=== PATIENT | female | born 1970 | race African-American/Black ===

== ENCOUNTER 2016-05-19 17:51 | Emergency (ER) | payer MEDICAID ==
[2016-05-19 18:07] VITALS: TEMP 98.6; BMI 28.2
[2016-05-19 18:38] LABS: MPV 9.2 fL (7.4-10.4)
[2016-05-19 18:46] LABS: BLOOD UREA NITROGEN 16 MG/DL (7-17); CALCIUM 8.9 MG/DL (8.4-10.2); CALCULATED OSMOLALITY 268 MOs/Kg (270-290); CHLORIDE 99 mEq/L (98-107); GLUCOSE 192 MG/DL (70-99); SODIUM LEVEL 136 mEq/L (137-146); TOTAL PROTEIN 7.1 G/DL (6.3-8.2)
[2016-05-19 18:53] LABS: PARTIAL THROMB. TIME 22.3 SEC (22-35)
--- NOTE | 2016-05-19 20:17 | DIRPT ---
CLINICAL DATA: Chest pain. Diagnosed with bronchitis on Tuesday. Midsternal chest pain starting today. EXAM: CHEST 2 VIEW COMPARISON: 08/01/2015 FINDINGS: The heart size and mediastinal contours are within normal limits. Both lungs are clear. The visualized skeletal structures are unremarkable. Surgical clips in the right upper quadrant. IMPRESSION: No active cardiopulmonary disease. Electronically Signed By: Fernando Pendleton M.D. On: 05/19/2016 20:15
[2016-05-19 20:23] LABS: SEG NEUTROPHIL 81 % (45-76); TOTAL CELL COUNT 100
--- NOTE | 2016-05-19 20:44 | EDPRACDOC ---
- General Information Chief Complaint: Chest Pain Stated Complaint: CP SHARP PRESSURE Time Seen by Provider: 05/19/16 19:54 Information Source: Patient Mode of Arrival: Car Home Medications: Home Medications Levetiracetam [Keppra] 1,000 mg PO BID 03/12/12 Propranolol HCl [Innopran Xl] 120 mg PO DAILY 03/04/15 Calcium Carbonate/Vitamin D3 [Calcium 600 + Vit D 400 Caplet] 1 each PO DAILY Cholecalciferol (Vitamin D3) [Vitamin D3] 5,000 unit PO DAILY 05/30/15 Lamotrigine [Lamictal] 100 mg PO DAILY 05/30/15 Lorazepam [Ativan] 1 mg PO BID PRN 05/30/15 Lubiprostone [Amitiza] 24 mcg PO BID PRN 05/30/15 Multivitamin [One Daily Multivitamin] 1 each PO DAILY 05/30/15 Ondansetron [Zofran Odt] 4 mg PO Q6H PRN #15 tab.rapdis 05/30/15 Oxymorphone HCl [Opana] 5 mg PO TID PRN 05/30/15 Paroxetine HCl [Paxil Cr] 37.5 mg PO DAILY 05/30/15 Promethazine HCl [Phenergan] 12.5 mg PO Q6H PRN 05/30/15 Trazodone HCl 150 mg PO HS 05/30/15 Cyclobenzaprine HCl [Flexeril] 10 mg PO TID #21 tab 05/19/16 Meloxicam [Mobic] 7.5 mg PO BID #20 tab 05/19/16 Allergies/Adverse Reactions: Allergies Allergy/AdvReac Type Severity Reaction Status Date / Time codeine Allergy See Verified 05/30/15 12:10 Comments etodolac [From Lodine] Allergy Itching Verified 05/30/15 12:10 tramadol Allergy See Verified 05/30/15 12:10 Comments - History of Present Illness Onset: last night HPI: PT PRESENTS TODAY WITH SHARP, LEFT SIDED CHEST WALL PAIN THAT BEGAN EARLIER TODAY. PT STATES THAT SHE WAS RECENTLY TREATED FOR BRONCHITIS AND HAS HAD CHEST WALL PRESSURE, BUT THIS PRESSURE IS DIFFERENT AND FEELS SIMILAR TO HER PE' S IN 2014. DENIES FEVER, SHOB, ABD PAIN, N/V/D. DOES NOT APPEAR TO BE IN DISTRESS AT THIS TIME. PT IS NOT ANTI-COAGULATED. Chest Pain Location: Reports: Left Chest Pain Radiation: Reports: None Symptoms Occur: Reports: Suddenly Cardiac History of: Reports: DVT/PE Medications within 24 Hours: Reports: Other Prehospital Care: Reports: None Pain Came On: Reports: Suddenly Pain Status: Present Now Pain Description: Reports: Sharp Pain Severity: Moderate Pain Worsens With: Reports: Breathing Pain Improves With: Reports: Rest Associated Signs and Symptoms: Reports: None ED Past Medical History - History Reviewed Yes Nurses notes reviewed and agree except as marked - Patient Medical History Neurological History: Reports: Seizures (Epileptic), Epilepsy Respiratory History: Reports: Pneumonia (APR 2013), Pulmonary Embolism (04/2013) Musculoskeletal History: Reports: Arthritis Psychological History: Reports: Depression, Anxiety. Denies: Substance Use Disorder Systemic History: Reports: Anemia. Denies: Cancer Surgical History: Reports: Cholecystectomy, Tonsillectomy/Adnoidectomy. Denies : Hysterectomy - Family Medical History Reports: Hypertension (GRANDMOTHER), Cancer (FATHER (lung) AND M. GRANDMOTHER ( colon)), Blood Disorders (father: anemia) - Social Medical History Smoking Status: Never smoker Social History: Denies: Substance Use Disorder EDM Review of Systems - Review of Systems ROS Negative Except as Marked: Yes All systems reviewed and were negative except as marked Constitutional: No Symptoms Reported Ears: No Symptoms Reported Throat: No Symptoms Reported Nose: No Symptoms Reported Respiratory: Cough Cardiovascular: Chest Pain Gastrointestinal: No Symptoms Reported Neurological: No Symptoms Reported Musculoskeletal: No Symptoms Reported Integumentary: No Symptoms Reported - Physical Exam Constitutional: Alert (Awake), No apparent distress Oriented to: Time, Person, Place Last recorded Vital Signs: Last Vital Signs Temp 98.6 F 05/19/16 18:04 Pulse 82 05/19/16 19:59 Resp 18 05/19/16 19:59 BP 126/83 05/19/16 19:59 Pulse Ox 96 05/19/16 19:59 Oxygen Pulse Oxygen Saturation 96 O2 Device Room Air Oxygen Flow Rate Fraction of Inspired Oxygen ( FIO2) - HEENT Head: Normal Eye Exam: Normal Neck: Normal, Denies Pain, Midline - Respiratory/Cardiovascular Respiratory: Normal - CTA Cardiovascular: Normal - GI Palpation: Normal Tenderness: Non tender - Musculoskeletal Back: Normal Extremities: Normal - Integumentary Skin: Normal Lymphatics: Normal - Neurologic Cerebellar: Normal Mood Description: Normal Thought: Coherent Perception: Normal ED Chest Pain Exam - Respiratory/Cardiovascular Respiratory: Normal - CTA Cardiovascular/Chest: Normal Radial Pulse: Normal Chest Palpation: Normal - Action ASA given in the ED: No - Results 05/19/16 18:11 05/19/16 18:11 WBC 15.4 xk/uL (3.8-10.8) H 05/19/16 18:11 RBC 6.02 xM/uL (4.20-5.40) H 05/19/16 18:11 Hgb 12.9 g/dL (12.0-16.0) 05/19/16 18:11 Hct 40.1 % (36-47) 05/19/16 18:11 MCV 67 fL (81-99) L 05/19/16 18:11 MCH 21.5 pg (27-32) L 05/19/16 18:11 MCHC 32.3 g/dl (33-36) L 05/19/16 18:11 RDW 18.4 % (11.5-14.5) H 05/19/16 18:11 Plt Count 256 xk/uL (130-400) 05/19/16 18:11 MPV 9.2 fL (7.4-10.4) 05/19/16 18:11 Neut % (Auto) Cancelled 05/19/16 18:11 Lymph % (Auto) Cancelled 05/19/16 18:11 [place] % (Auto) Cancelled 05/19/16 18:11 Eos % (Auto) Cancelled 05/19/16 18:11 Baso % (Auto) Cancelled 05/19/16 18:11 Absolute Neuts (auto) Cancelled 05/19/16 18:11 Absolute Lymphs (auto) Cancelled 05/19/16 18:11 Seg Neuts % (Manual) 81 % (45-76) H 05/19/16 18:11 Band Neutrophils % 1 % (0-5) 05/19/16 18:11 Lymphocytes % (Manual) 13 % (17-44) L 05/19/16 18:11 Monocytes % (Manual) 5 % (0-10) 05/19/16 18:11 Absolute Neutrophils 12.63 xk/uL (1.7-8.2) H 05/19/16 18:11 Absolute Lymphocytes 2.00 xk/uL (0.65-4.75) 05/19/16 18:11 Platelet Estimate Norm (NORMAL) 05/19/16 18:11 RBC Morphology 1+ hypo 1+ ellipto 1+ target 1+ polychrom 1+ micro 05/19/16 18:11 RBC Morphology 1+ hypo 1+ ellipto 1+ target 1+ polychrom 1+ micro 05/19/16 18:11 RBC Morphology 1+ hypo 1+ ellipto 1+ target 1+ polychrom 1+ micro 05/19/16 18:11 RBC Morphology 1+ hypo 1+ ellipto 1+ target 1+ polychrom 1+ micro 05/19/16 18:11 RBC Morphology 1+ hypo 1+ ellipto 1+ target 1+ polychrom 1+ micro 05/19/16 18:11 PT 10.7 SEC (9.2-11.2) 05/19/16 18:11 INR 1.0 05/19/16 18:11 APTT 22.3 SEC (22-35) 05/19/16 18:11 Sodium 136 mEq/L (137-146) L 05/19/16 18:11 Potassium 4.1 mEq/L (3.5-5.1) 05/19/16 18:11 Chloride 99 mEq/L (98-107) 05/19/16 18:11 Carbon Dioxide 25 mMOL/L (22-33) 05/19/16 18:11 Anion Gap 16 mEq/L (8-16) 05/19/16 18:11 BUN 16 MG/DL (7-17) 05/19/16 18:11 Creatinine 0.90 MG/DL (0.52-1.04) 05/19/16 18:11 Estimated GFR (MDRD) > 60 mL/min (>=60) 05/19/16 18:11 Glucose 192 MG/DL (70-99) H 05/19/16 18:11 Calculated Osmolality 268 MOs/Kg (270-290) L 05/19/16 18:11 Calcium 8.9 MG/DL (8.4-10.2) 05/19/16 18:11 Total Bilirubin 0.8 MG/DL (0.2-1.3) 05/19/16 18:11 AST 109 IU/L (14-36) H 05/19/16 18:11 ALT 112 IU/L (9-52) H 05/19/16 18:11 Alkaline Phosphatase 70 IU/L (38-126) 05/19/16 18:11 Troponin I < 0.01 ng/mL (<.04) 05/19/16 18:11 Gwg-Z-Hrsmounvbza Pept 90 pg/mL (0-450) 05/19/16 18:11 Total Protein 7.1 G/DL (6.3-8.2) 05/19/16 18:11 Albumin 4.2 G/DL (3.5-5.0) 05/19/16 18:11 Lab Results 05/19/16 05/19/16 05/19/16 18:11 18:11 18:11 WBC 15.4 H RBC 6.02 H Hgb 12.9 Hct 40.1 MCV 67 L MCH 21.5 L MCHC 32.3 L RDW 18.4 H Plt Count 256 MPV 9.2 Neut % (Auto) Cancelled Lymph % (Auto) Cancelled [place] % (Auto) Cancelled Eos % (Auto) Cancelled Baso % (Auto) Cancelled Absolute Neuts (auto) Cancelled Absolute Lymphs (auto) Cancelled Seg Neuts % (Manual) 81 H Band Neutrophils % 1 Lymphocytes % (Manual) 13 L Monocytes % (Manual) 5 Absolute Neutrophils 12.63 H Absolute Lymphocytes 2.00 Platelet Estimate Norm RBC Morphology 1+ micro PT 10.7 INR 1.0 APTT 22.3 Sodium 136 L Potassium 4.1 Chloride 99 Carbon Dioxide 25 Anion Gap 16 BUN 16 Creatinine 0.90 Estimated GFR (MDRD) > 60 Glucose 192 H Calculated Osmolality 268 L Calcium 8.9 Total Bilirubin 0.8 AST 109 H ALT 112 H Alkaline Phosphatase 70 Troponin I < 0.01 Crv-L-Exkaomxnjto Pept 90 Total Protein 7.1 Albumin 4.2 Laboratory Results - last 24 hr 05/19/16 05/19/16 05/19/16 18:11 18:11 18:11 WBC 15.4 H RBC 6.02 H Hgb 12.9 Hct 40.1 MCV 67 L MCH 21.5 L MCHC 32.3 L RDW 18.4 H Plt Count 256 MPV 9.2 Neut % (Auto) Cancelled Lymph % (Auto) Cancelled [place] % (Auto) Cancelled Eos % (Auto) Cancelled Baso % (Auto) Cancelled Absolute Neuts (auto) Cancelled Absolute Lymphs (auto) Cancelled Seg Neuts % (Manual) 81 H Band Neutrophils % 1 Lymphocytes % (Manual) 13 L Monocytes % (Manual) 5 Absolute Neutrophils 12.63 H Absolute Lymphocytes 2.00 Platelet Estimate Norm RBC Morphology 1+ micro PT 10.7 INR 1.0 APTT 22.3 Sodium 136 L Potassium 4.1 Chloride 99 Carbon Dioxide 25 Anion Gap 16 BUN 16 Creatinine 0.90 Estimated GFR (MDRD) > 60 Glucose 192 H Calculated Osmolality 268 L Calcium 8.9 Total Bilirubin 0.8 AST 109 H ALT 112 H Alkaline Phosphatase 70 Troponin I < 0.01 Bmv-T-Mypjzgyedfa Pept 90 Total Protein 7.1 Albumin 4.2 Laboratory Results 05/19/16 18:11 05/19/16 18:11 - EKG EKG #1 EKG Time: 17:55 -: Yes EKG interpreted by me Rate: bpm: 88 [place]: Normal Rhythm: NSR Block: None Hypertrophy: None ST: Normal Decision Time to Discharge: 21:03 - Departure Disposition: Home Condition: Good Final Diagnosis: Chest wall pain Instructions: Chest Pain (ED), Chest Wall Pain Education/Counseling Given To: Patient Education/Counseling Given Regarding: Diagnosis, Treatment, Follow Up Referrals: Liana Dang PA [Primary Care Provider] - One Week Prescriptions: Cyclobenzaprine HCl [Flexeril] 10 mg PO TID #21 tab Meloxicam [Mobic] 7.5 mg PO BID #20 tab Additional Instructions: REST AND PLENTY OF FLUIDS. FOLLOW UP WITH PCP IN 2-3 DAYS IF NEEDED.
--- NOTE | 2016-05-19 20:56 | DIRPT ---
CLINICAL DATA: Chest pain and shortness of Breath EXAM: CT ANGIOGRAPHY CHEST WITH CONTRAST TECHNIQUE: Multidetector CT imaging of the chest was performed using the standard protocol during bolus administration of intravenous contrast. Multiplanar CT image reconstructions and MIPs were obtained to evaluate the vascular anatomy. CONTRAST: 80 mL Isovue 370 nonionic COMPARISON: Chest radiograph May 19, 2016; chest CT May 30, 2015 FINDINGS: There is no demonstrable pulmonary embolus. There is no thoracic aortic aneurysm or dissection. The visualized great vessels appear normal. There is mild atelectatic change in anterior left base region. There is no edema or consolidation. Visualized thyroid appears unremarkable. There is no appreciable thoracic adenopathy. Pericardium does not appear thickened. In the visualized upper abdomen, gallbladder is noted to be absent. Visualized upper abdominal structures otherwise appear unremarkable. There is mid thoracic dextroscoliosis. There are no blastic or lytic bone lesions. Review of the MIP images confirms the above findings. IMPRESSION: No demonstrable pulmonary embolus. Mild atelectatic change in the anterior left lung base. No edema or consolidation. No demonstrable adenopathy. Gallbladder absent. Electronically Signed By: Fernando Akbar III, M.D. On: 05/19/2016 20:53
[2016-05-19] MEDS ORDERED: Pharmacy Review for Metformin - IV Contrast Given SCH (21:00)
[2016-05-19] MEDS ORDERED: MORPHINE 4 MG/ML INJECTION IV ONE (21:00)
[2016-05-19 21:09] VITALS: BP 113/76; PULSE 89
== END 2016-05-19 21:40 | disposition home or self-care (01) ==
LOC: ED 17:51 → EDMC 21:40
DX: R07.89 Other chest pain (principal)
CPT/HCPCS: 36415; 71020; 71275; 80053; 83880; 84484; 85007; 85027; 85610; 85730; 93005; 96374; 99284; A9698; J2270